=== PATIENT | male | born 1945 | race Caucasian/White ===

== ENCOUNTER 2017-12-17 13:51 | Emergency (ER) | payer MEDICARE ==
[~2017-12-17] VITALS: Ht 172.7 cm; Wt 68.6 kg
[2017-12-17 13:55] VITALS: Ht 172.7 cm; Wt 68.6 kg
[2017-12-17] MEDS ORDERED: MIDODRINE HCL10 MG PO (13:58)
[2017-12-17] MEDS ORDERED: BETAPACE 120 M120 MG PO (13:58)
[2017-12-17] MEDS ORDERED: ELIQUIS5 MG PO (13:58)
[2017-12-17] MEDS ORDERED: FLORINEF 0.1 M0.1 MG PO (13:59)
[2017-12-17 14:32] LABS: BASOPHILS 0.3 % (0-2); EOSINOPHILS 3.1 % (0-7); HEMOGLOBIN 13.3 g/dL (13.5-17.5); IMMATURE GRANULOCYTES 0.1 % (0-5); LYMPHOCYTES 16.5 % (15-50); MCH 31.1 pg (26.0-34.0); MEAN PLATELET VOLUME 9.6 fL (7.4-10.4); MONOCYTES 8.5 % (2-11); NEUTROPHILS 71.5 % (40-80); PLATELET COUNT 193 10x3/uL (130-400); RBC 4.27 10x6/uL (4.20-6.10); RDW 12.4 % (11.5-14.5); WBC 6.8 10x3/uL (4.8-10.8)
[2017-12-17 14:57] LABS: ALBUMIN 3.5 g/dL (3.4-5.0); ALKALINE PHOSPHATASE 45 U/L (46-116); ALT (SGPT) 27 U/L (10-68); BILIRUBIN - TOTAL 0.69 mg/dL (0.2-1.3); CALC OSMOLALITY 283 mosm/kg (275-300); CALCIUM 8.8 mg/dL (8.5-10.1); CARBON DIOXIDE 29.2 mmol/L (21.0-32.0); CHLORIDE - SERUM 106 mmol/L (98-107); CREATININE - SERUM 0.9 mg/dL (0.6-1.3); GLUCOSE 151 mg/dL (74-106); POTASSIUM - SERUM 3.6 mmol/L (3.5-5.1); PROTEIN - SERUM 6.8 g/dL (6.4-8.2); SODIUM 142 mmol/L (136-145); UREA NITROGEN 8 mg/dL (7-18); eGFR NON AFRICAN AMERICAN 88 mL/min (90-120)
[2017-12-17 15:16] LABS: CKMB 0.2 U/L (0.0-3.6); CREATINE KINASE 38 UL (21-232); TROPONIN-I < 0.017 ng/mL (0.000-0.060)
[2017-12-17] MEDS ORDERED: LANOXIN125 MCG PO (15:26)
[2017-12-17 16:25] VITALS: BP 119/75
== END 2017-12-17 16:27 | disposition home or self-care (01) ==
LOC: D.ER 13:51
PROVIDERS: Emergency Medicine
DX: I48.0 Paroxysmal atrial fibrillation (principal)